=== PATIENT | female | born 2000 | race Caucasian/White ===

== ENCOUNTER 2019-10-15 08:28 | Emergency (ER) | payer BC, SELFPAY ==
[2019-10-15 08:33] VITALS: BP 133/88; PULSE 94; RESP 16; TEMP 36.9; O2SAT 99
--- NOTE | 2019-10-15 09:00 | ED.HEATRA ---
HPI - Head Injury General Chief complaint: Head Injury Stated complaint: Think I have a concussion Time Seen by Provider: 10/15/19 08:59 Source: patient Mode of arrival: ambulatory Limitations: no limitations History of Present Illness HPI Narrative: Patient is a 19-year-old female who presents for evaluation of headache pain. Patient states she works at a [employer] facility, was walking a dog yesterday when she hit her head on a candle that was on a shelf. Patient reports a bump over her head, denies loss of consciousness. She denies nausea, vomiting, vision changes. No numbness. Patient denies neck pain. She reports mild headache, intermittent dizziness. Patient has been ambulatory with a normal gait. She usually feels dizzy with standing. She states that bright lights seem to be a little bothersome to her and she is worried she had a concussion. Patient is not on any anticoagulation medication. No thunderclap sensation to the headache. Headache has been dull, aching in nature over her forehead. Related Data Home Medications Medication Instructions Recorded Confirmed norethindrone ac-eth estradiol 1 tablet PO DAILY 10/15/19 [Microgestin 1.5/30 (21)] sertraline 50 mg PO DAILY 10/15/19 Allergies Allergy/AdvReac Type Severity Reaction Status Date / Time No Known Allergies Allergy Verified 10/15/19 08:36 Review of Systems Review of Systems: Narrative: CONSTITUTIONAL: Denies fever HEENT: Denies vision changes, denies neck pain CARDIOVASCULAR: Denies chest pain RESPIRATORY: Denies cough or dyspnea. GASTROINTESTINAL: Denies abdominal pain SKIN: Denies rash MUSCULOSKELETAL: Denies back pain NEUROLOGIC: Reports mild headache, denies numbness, reports dizziness, denies weakness PMFSH Past Medical History Medical History No pertinent past medical history Surgical History Surgical History (Updated 10/15/19 @ 09:23 by Davida Rand MD) History of tonsillectomy Social History Social History (Updated 10/15/19 @ 09:23 by Davida Rand MD) Smoking status: Never smoker Alcohol intake: never Substance use: unknown Gender identity (if verbalized by the patient): Female Exam Narrative: Exam Narrative: GENERAL: Awake, alert, conversant HEAD: Normocephalic, atraumatic. EYES: PERRLA and EOMI. ENT: Nares clear, no rhinorrhea or epistaxis. Mucous membranes moist. NECK: Supple. CHEST: No respiratory distress, breathing even and non labored HEART: Regular rate, sinus rhythm ABDOMEN:Non distended, non tender EXTREMITIES: Normal range of motion. No edema. SKIN: Warm, dry, no rash. NEURO:No focal deficits. Alert and oriented x3. Finger to nose intact bilaterally. EOMs intact without nystagmus. No facial droop/asymmetry noted bilaterally. Grimace intact. Intact sensation in face. Hearing intact bilaterally. Shoulder shrug intact. Strength 5/5 bilateral upper extremities. Strength 5/5 bilateral lower extremities. Reflexes 2+ patellar. Ambulatory with a narrow base, steady gait, no ataxia. Course Vital Signs Vital signs: Vital Signs Temperature 36.9 C 10/15/19 08:33 Pulse Rate 94 10/15/19 08:33 Respiratory Rate 16 10/15/19 08:33 Blood Pressure 133/88 10/15/19 08:33 Pulse Oximetry 99 10/15/19 08:33 Temperature 36.9 C 10/15/19 08:33 Pulse Rate 94 10/15/19 08:33 Respiratory Rate 16 10/15/19 08:33 Blood Pressure 133/88 10/15/19 08:33 Pulse Oximetry 99 10/15/19 08:33 MDM - Head Injury MDM Narrative Medical decision making narrative: Patient presented after a very mild head trauma that occurred over 24 hours ago while in the patient was at work and hit her head on a dog kennel. Patient has no red flag symptoms such as loss of consciousness, recurrent vomiting, weakness or altered mental status. It has been over 24 hours since injury occurred. Patient has headache symptoms that are most consistent with postconc
== END 2019-10-15 09:57 | disposition home or self-care (01) ==
PROVIDERS: Emergency Provider Emergency Medicine
DX: S06.0X0A Concussion without loss of consciousness, initial encounter (principal); W22.8XXA Striking against or struck by other objects, initial encounter
CPT/HCPCS: 99283